=== PATIENT | female | born 1970 | race Caucasian/White ===

== ENCOUNTER 2019-04-05 07:19 | Day surgery (SDC) | payer OTHER ==
[~2019-04-05] VITALS: Ht 160 cm; Wt 80.0 kg
[~2019-04-05 07:19] MED LIST: AMLO10 PO; ASPI325 PO; HYDCHL12.5 PO; METF850 PO; NEBI10 PO; OXYACE5T PO; PROM25 PO; RAMI5 PO; RXOXYACE PO; SULTRIDS PO; [UNRECOGNIZED DRUG - OTHER] PO
[2019-04-05] MEDS ORDERED: BASAGLAR K100 UNIT/1 SC (07:39)
[2019-04-05] MEDS ORDERED: JARDIANCE25 MG PO (07:40)
[2019-04-05] MEDS ORDERED: LOSA50 PO (07:41)
[2019-04-05] MEDS ORDERED: CETI5 PO (07:41)
== END 2019-04-05 10:30 | disposition home or self-care (01) ==
LOC: ORSCSDS 07:19
PROVIDERS: Orthopaedic Surgery
PROC: 0SBC4ZZ Excision of Right Knee Joint, Percutaneous Endoscopic Approach (ICD-10-PCS; principal; 2019-04-05 08:45)
DX: S83.241A Other tear of medial meniscus, current injury, right knee, initial encounter (principal); I10 Essential (primary) hypertension; Z79.899 Other long term (current) drug therapy
CPT/HCPCS: 82947; A9270-GY; J0171; J0330; J0690; J1885; J2250; J2405; J2704; J2710; J3010; J7120

== ENCOUNTER 2025-02-14 06:19 | Emergency (ER) | payer OTHER ==
[~2025-02-14] VITALS: Ht 160 cm; Wt 34.0 kg
[~2025-02-14 06:19] MED LIST changes: +BASAGLAR K100 UNIT/1 SC; +CETI5 PO; +JARDIANCE25 MG PO; +LOSA50 PO
[2025-02-14] MEDS ORDERED: Ondansetron HCl 2 MG / ML 2ML Vial IV PRN (06:45)
[2025-02-14 07:02] LABS: BASOPHILS ABSOLUTE AUTO 0.08 K/mm3 (0.00-0.23); BASOPHILS PERCENT AUTO 1 % (0-2); EOSINOPHILS ABSOLUTE AUTO 0.31 K/mm3 (0.00-0.68); EOSINOPHILS PERCENT AUTO 3 % (0-6); Hematocrit 42.6 % (33.0-51.0); Hemoglobin 14.9 g/dL (11.5-16.0); IMMATURE GRAN ABSOLUTE AUTO 0.04 K/mm3 (0.00-0.10); IMMATURE GRAN PERCENT AUTO 0 % (0-1); LYMPHOCYTES ABSOLUTE AUTO 3.63 K/mm3 (0.84-5.20); LYMPHOCYTES PERCENT AUTO 34 % (21-46); MONOCYTES ABSOLUTE AUTO 0.64 K/mm3 (0.16-1.47); MONOCYTES PERCENT AUTO 6 % (4-13); Mean Corpuscular HGB 31.4 pg (26.0-34.0); Mean Corpuscular Volume 90 fL (80-100); Mean Platelet Volume 10.6 fL (9.1-12.4); NEUTROPHILS ABSOLUTE AUTO 6.03 K/mm3 (1.96-9.15); NEUTROPHILS PERCENT AUTO 56 % (41-73); Platelet Count 274 K/mm3 (150-400); RDW Coefficient Variation 12.2 % (11.7-14.2); Red Blood Cell Count 4.74 M/mm3 (3.80-5.20); White Blood Cell Count 10.73 K/mm3 (4.00-11.30)
[2025-02-14 07:24] LABS: Albumin, Blood 3.9 g/dL (3.4-5.0); Bilirubin, Total 0.5 mg/dL (0.1-1.0); Calcium, Blood 9.1 mg/dL (8.5-10.1); Creatinine, Blood 0.6 mg/dL (0.40-1.00); Globulin, Blood 3.9 g/dL (2.2-4.0); Potassium, Blood 3.9 mmol/L (3.5-5.5); Total Protein, Blood 7.8 g/dL (6.4-8.2)
[2025-02-14] MEDS ORDERED: ATEN50 PO (07:42)
[2025-02-14] MEDS ORDERED: ATOR10 PO (07:44)
[2025-02-14] MEDS ORDERED: OZEMPIC2 MG/0.75 SC (07:44)
[2025-02-14] MEDS ORDERED: LOSARTAN POTAS100 M1 PO (07:45)
[2025-02-14] MEDS ORDERED: NS 1,000 ML IV SCH (08:20)
[2025-02-14 12:00] VITALS: BP 135/96
== END 2025-02-14 12:33 | disposition home or self-care (01) ==
LOC: ER 06:19
PROVIDERS: Student in an Organized Health Care Education/Training Program
DX: R07.89 Other chest pain (principal); R00.2 Palpitations; I10 Essential (primary) hypertension; Z91.09 Other allergy status, other than to drugs and biological substances; Z79.84 Long term (current) use of oral hypoglycemic drugs; Z79.4 Long term (current) use of insulin; Z79.899 Other long term (current) drug therapy
CPT/HCPCS: 71046; 80053; 83690; 84484; 85025; 93005; 93010; 93246; 99285-25; J7030